=== PATIENT | female | born 1990 | race Two or more races ===

== ENCOUNTER 2016-07-10 22:12 | Emergency (ER) | payer MEDICAID ==
[~2016-07-10] VITALS: Ht 172.7 cm; Wt 65.8 kg
--- NOTE | 2016-07-10 22:16 | NUR ---
PATIENT C/O LEFT FLANK PAIN X1 WEEK. FAMILY CALLED 911 DUE TO WORSENING LEFT FLANK PAIN X1 WEEK. PAIN WORSE TODAY. PATIENT UPON ARRIVAL HYPERVENTALATING AND CRYING.. PT IS ALERT, ORIENTED X 4, NO RESP DISTRESS NOTED OR REPORTED UPON ASSESSMENT... MD AT BEDSIDE...
[2016-07-10] MEDS ORDERED: PREN1TAB81 PO (22:24)
[2016-07-10 22:51] LABS: *BILIRUBIN,URIN NEGATIVE (NEGATIVE); *BLOOD, URINE NEGATIVE (NEGATIVE); *CLARITY,URINE CLOUDY (CLEAR); *COLOR,URINE STRAW (YELLOW); *KETONES,URINE NEGATIVE (NEGATIVE); *PROTEIN,URINE NEGATIVE (NEGATIVE); *UROBILINOGEN,URINE 0.2 E.U./dl (NORMAL); NITRITE, URINE NEGATIVE (NEGATIVE); UGLUCOSE NEGATIVE (NEGATIVE)
[2016-07-10 22:52] LABS: LEUKOCYTE ESTERASE ,URINE TRACE (NEGATIVE)
[2016-07-10 22:57] LABS: BACTERIA,URINE FEW /HPF (NONE SEEN); RBC,URINE NONE SEEN /HPF (0-3); SQUAMOUS EPITHELIAL CELL,UR MANY /HPF (NONE SEEN); WBC,URINE 0-3 /HPF (0-3)
--- NOTE | 2016-07-10 23:41 | NUR ---
Patient discharged to home in stable conditon. Written and verbal after care instructions given. Patient verbalizes understanding of instructions. pt walked out of ER unassisted with family at side...
[2016-07-10 23:43] VITALS: BP 142/97
== END 2016-07-10 23:43 | disposition home or self-care (01) ==
LOC: ER 22:12
DX: O26.891 Other specified pregnancy related conditions, first trimester (principal); Z3A.11 11 weeks gestation of pregnancy; F41.0 Panic disorder [episodic paroxysmal anxiety]; R82.71 Bacteriuria
CPT/HCPCS: 81001; 99284; A4663